=== PATIENT | female | born 1970 | race Caucasian/White ===

== ENCOUNTER 2016-07-17 13:32 | Emergency (ER) | payer OTHER ==
[~2016-07-17] VITALS: Ht 172.7 cm; Wt 84.8 kg
[2016-07-17] MEDS ORDERED: VITA50003 PO (13:48)
[2016-07-17] MEDS ORDERED: RANI150T PO (13:48)
[2016-07-17] MEDS ORDERED: ASPI81CH PO (13:48)
[2016-07-17] MEDS ORDERED: CLOBETASOL TOP (13:48)
[2016-07-17] MEDS ORDERED: LISI10TA4 PO (13:48)
[2016-07-17] MEDS ORDERED: FLUT1SPR2 (13:48)
[2016-07-17] MEDS ORDERED: ASPIRIN 81 MG CHEW TABLET PO ONE (14:30)
[2016-07-17] MEDS ORDERED: PANTOPRAZOLE 40MG TAB (PROTONIX) PO ONE (14:30)
[2016-07-17 14:42] LABS: BASO % 0.5 % (0.0-1.0); EOS # 0.1 K/mm3 (0.0-0.50); EOS % 1.4 % (0.0-3.0); LARGE UNSTAINED CELL # 0.2 K/mm3 (0.0-0.4); LARGE UNSTAINED CELL % 2.1 % (0.0-4.0); LYMPH # 1.7 K/mm3 (1.5-4.5); LYMPH % 23.9 % (24.0-44.0); MEAN CORPUSCULAR HEMOGLOBIN 32.1 pg (27.0-33.0); MEAN CORPUSCULAR VOLUME 94.3 fl (80.0-96.0); MONO # 0.5 K/mm3 (0.0-0.8); MONO % 6.4 % (0.0-5.0); NEUTROPHILS # 4.7 K/mm3 (1.8-7.7); NEUTROPHILS % 65.7 % (36.0-66.0); PLATELET COUNT, AUTOMATED 239 k/mm3 (150-450); RED CELL DISTRIBUTION WIDTH 12.6 % (11.5-14.5); WHITE BLOOD COUNT 7.1 K/mm3 (4.0-10.0)
--- NOTE | 2016-07-17 14:49 | REP ---
Clinical: Chest pain . Comparison: None . Technique: PA and lateral. Findings: The mediastinum and cardiac silhouette are normal. The lung mario are clear and without acute consolidation, effusion, or pneumothorax. The skeletal structures are intact and normal. Impression: 1. No acute cardiopulmonary process. Signed by Kali Seals MD 07/17/2016 02:41 P
[2016-07-17 14:56] LABS: ALBUMIN 3.8 GM/DL (3.2-5.2); ALBUMIN/GLOBULIN RATIO 1.12 (1.00-1.93); ALKALINE PHOSPHATASE 65 U/L (45-117); ALT/SGPT 24 U/L (12-78); ANION GAP 8 MEQ/L (8-16); AST/SGOT 14 U/L (15-37); BILIRUBIN,DIRECT 0.1 MG/DL (0.0-0.2); BILIRUBIN,TOTAL 0.6 MG/DL (0.2-1.0); BLOOD UREA NITROGEN 13 MG/DL (7-18); CALCIUM LEVEL 8.6 MG/DL (8.5-10.1); CARBON DIOXIDE LEVEL 29 MEQ/L (21-32); CHLORIDE LEVEL 102 MEQ/L (98-107); CREATININE FOR GFR 0.71 MG/DL (0.55-1.02); GLOMERULAR FILTRATION RATE > 60.0 (>58); GLUCOSE, FASTING 82 MG/DL (70-105); POTASSIUM SERUM 3.7 MEQ/L (3.5-5.1); SODIUM LEVEL 139 MEQ/L (136-145); TOTAL PROTEIN 7.2 GM/DL (6.4-8.2)
[2016-07-17 16:34] VITALS: BP 114/64
--- NOTE | 2016-07-18 10:12 | ECGEPIP ---
Stationary ECG Study [facility] - ED Test Date: 2016-07-17 Pat Name: LILA SHEEHAN Department: Room: - Gender: F Kiln Stoker: dez : 1970 Requested By: Zach Pham Order Number: [id number] Reading MD: Yesenia Montana Measurements Intervals Cabins Rate: 68 P: 51 [place]: 205 QRS: -5 QRSD: 74 T: 9 QT: 381 QTc: 406 Interpretive Statements SINUS RHYTHM LOW QRS VOLTAGE IN PRECORDIAL LEADS POSSIBLE INFERIOR MYOCARDIAL INFARCTION, PROBABLY OLD PRWP NO PRIOR FOR COMPARISON Electronically Signed On 07-18-2016 10:12:44 EDT by Yesenia Montana
== END 2016-07-17 16:36 | disposition left against medical advice (07) ==
LOC: M ED 14:46
DX: R07.9 Chest pain, unspecified (principal); I10 Essential (primary) hypertension; R12 Heartburn; Z79.899 Other long term (current) drug therapy; Z79.82 Long term (current) use of aspirin; Z79.51 Long term (current) use of inhaled steroids; Z88.3 Allergy status to other anti-infective agents; Z88.8 Allergy status to other drugs, medicaments and biological substances
CPT/HCPCS: 36415; 71020; 80048; 80076; 82550; 82553; 83690; 85025; 85379; 93005; 93041; 94760; 99285; G0463

== ENCOUNTER → 2018-06-08 | Outpatient (REF) | payer OTHER ==
[~2018-06-08] MED LIST: ASPI81CH49 PO; CLOBETASOL TOP; FLUT1SPR2; LISI10TA4 PO; RANI150T PO; VITA50005 PO
== END ==
LOC: M SFHCLERA 11:58
PROVIDERS: ATTEND Physician Assistant
DX: J02.9 Acute pharyngitis, unspecified (principal)

== ENCOUNTER → 2018-11-20 | Outpatient (CLI) | payer OTHER ==
--- NOTE | 2018-11-20 15:19 | REPVR ---
PROCEDURE INFORMATION: Exam: MR Head Without Contrast Exam date and time: 11/20/2018 1:29 PM Clinical history: 48 years old, female; Other: Hearing loss TECHNIQUE: Imaging protocol: MR of the head without contrast. 3D rendering: MIP reconstructed images were created and reviewed. COMPARISON: No relevant prior studies available. FINDINGS: Brain: There is no abnormal diffusion weighted signal intensity to suggest an acute ischemic event. No other acute intracranial process is identified. Brainstem: There is a subtle T2 bright focus in the left kristyn on FLAIR images 8 and 9 slightly cephalad to the nuclei of the acoustic nerve but demyelinating disease could be considered. Ventricles: There is a 3 mm T2 bright focus superolateral to the left lateral ventricle which could reflect demyelinating disease but is more likely due to typical microangiopathic pathology. Bones/joints: Unremarkable. Soft tissues: Unremarkable. Sinuses: Normal as visualized. No acute sinusitis. Mastoid air cells: Normal as visualized. No mastoid effusion. Internal auditory canals: The internal auditory canals and seventh and eighth nerves appear normal on high resolution T2 weighted images. Fluid signal in the inner ear structures is unremarkable. Orbits: Unremarkable. Other vasculature: The vasculature is normal. IMPRESSION: 1. There is a subtle T2 bright focus in the left kristyn on FLAIR images 8 and 9 slightly cephalad to the nuclei of the acoustic nerve but demyelinating disease could be considered. 2. There is a 3 mm T2 bright focus superolateral to the left lateral ventricle which could reflect demyelinating disease but is more likely due to typical microangiopathic pathology. 3. The internal auditory canals and seventh and eighth nerves appear normal on high resolution T2 weighted images. Fluid signal in the inner ear structures is unremarkable. 4. No other acute intracranial process is identified. Electronically signed by: Jb Shine On 11/20/2018 15:18:50 PM
== END ==
LOC: M RAD 12:32
PROVIDERS: ATTEND Otolaryngology
DX: H91.90 Unspecified hearing loss, unspecified ear (principal)

== ENCOUNTER → 2019-01-15 | Outpatient (REF) | payer OTHER ==
[2019-01-15 14:06] LABS: BASO % 0.6 % (0.0-1.0); EOS # 0.1 10^3/uL (0.0-0.5); EOS % 2.3 % (0.0-3.0); HEMOGLOBIN 14.5 g/dl (12.0-15.5); LYMPH # 1.2 10^3/uL (1.5-5.0); LYMPH % 25.4 % (24.0-44.0); MEAN CORPUSCULAR HEMOGLOBIN 30.5 pg (27.0-33.0); MEAN CORPUSCULAR VOLUME 92.6 fl (80.0-96.0); MONO # 0.6 10^3/uL (0.0-0.8); MONO % 11.5 % (0.0-5.0); NEUTROPHILS # 2.9 10^3/uL (1.5-8.5); NEUTROPHILS % 59.2 % (36.0-66.0); PLATELET COUNT, AUTOMATED 231 10^3/uL (150-450); RED BLOOD COUNT 4.75 10^6/uL (4.00-5.40); WHITE BLOOD COUNT 4.9 10^3/uL (4.0-10.0)
[2019-01-15 14:19] LABS: ALBUMIN 3.6 GM/DL (3.2-5.2); ALT/SGPT 45 U/L (12-78); BILIRUBIN,TOTAL 0.5 MG/DL (0.2-1.0); BLOOD UREA NITROGEN 18 MG/DL (7-18); CALCIUM LEVEL 8.5 MG/DL (8.5-10.1); CARBON DIOXIDE LEVEL 25 MEQ/L (21-32); CHLORIDE LEVEL 104 MEQ/L (98-107); CREATININE FOR GFR 0.82 MG/DL (0.55-1.30); FOLATE 12.3 NG/ML; GLOMERULAR FILTRATION RATE > 60.0 (>51); GLUCOSE, FASTING 94 MG/DL (70-100); RHEUMATOID FACTOR QUANT < 10.0 IU/ML (<15.0); SODIUM LEVEL 137 MEQ/L (136-145); TOTAL 25(OH) VITAMIN D 72.6 NG/ML (30.0-100.0); VITAMIN B12 LEVEL 508 PG/ML
[2019-01-15 14:59] LABS: ERYTHROCYTE SEDIMENTATION RATE 5 mm/hr (0-30)
[2019-01-15 15:29] LABS: HEMOGLOBIN A1c 5.5 %
[2019-01-20 11:18] LABS: DRVV SCREEN 36.6 SEC
[2019-01-20 11:19] LABS: PTT LUPUS TYPE ANTICOAG SCREEN 0.9 (0-1.2)
== END ==
LOC: M LABNEURO 08:54
PROVIDERS: ATTEND Psychiatry & Neurology Neurology
DX: G37.9 Demyelinating disease of central nervous system, unspecified (principal)

== ENCOUNTER → 2019-03-05 | Outpatient (REF) | payer OTHER | LOC: M SFHCLERA 15:42 | PROVIDERS: ATTEND Physician Assistant | DX: R39.15 Urgency of urination (principal) | CPT/HCPCS: 81002; 87086; 96372; G0463; J1885 ==